=== PATIENT | male | born 1955 | race Caucasian/White ===

== ENCOUNTER 2020-07-21 09:00 | Day surgery (SDC) | payer MEDICARE ==
[2020-07-15 13:12] LABS: BASOPHILS % (AUTO) 0.4 % (0.0-5.0); EOSINOPHILS % (AUTO) 1.9 % (0.0-8.0); HEMATOCRIT 40.8 % (42-54); LYMPHOCYTES % (AUTO) 28.8 % (21.0-51.0); MEAN CORPUSCULAR HEMOGLOBIN 30.2 pg (27.0-33.0); MEAN CORPUSCULAR HGB CONC 32.6 g/dL (32.0-36.0); MEAN CORPUSCULAR VOLUME 92.5 fL (79-99); MONOCYTES % (AUTO) 10.1 % (3.0-13.0); NEUTROPHILS % (AUTO) 58.4 % (40.0-77.0); PLATELET COUNT (AUTO) 174 K/uL (130-400); RED BLOOD CELL COUNT(AUTO) 4.41 MIL/uL (4.50-6.20); RED CELL DISTRIBUTION WIDTH 13.2 % (11.0-15.5); WHITE BLOOD COUNT (AUTO) 5.3 K/uL (4.8-10.8)
[2020-07-15 13:41] LABS: CREATININE 1.1 mg/dL (0.5-1.5); POTASSIUM 4.4 mmol/L (3.5-5.1)
[2020-07-15 14:55] LABS: INR 1.03 (0.85-1.15); PARTIAL THROMBOPLASTIN TIME 24.3 SEC (26.3-35.5); PROTHROMBIN TIME 10.7 SEC (9.6-11.6)
[2020-07-20 14:54] VITALS: BP 158/77
[2020-07-21] VITALS (16 sets, daily range): BP systolic 101–153; BP diastolic 58–86
[~2020-07-21] VITALS: Ht 180.3 cm; Wt 106.6 kg
[~2020-07-21 09:00] MED LIST: ATOR20TA65 PO; CILO50TA PO; FISH1CAP10 PO; GLUC-252 PO; LISI20TA24 PO; VITAMIN E PO
[2020-07-21] MEDS ORDERED: LACTATED RINGERS 1000ML 1,000 ML IV ONE (10:17)
[2020-07-21] MEDS: CEFAZOLIN SODIUM 1 GM VIAL IVP SCH ×2 (11:00→11:45)
[2020-07-21] MEDS ORDERED: VENL-53 PO (11:07)
[2020-07-21] MEDS ORDERED: OSTEOFLEX PO (11:08)
[2020-07-21] MEDS ORDERED: FENTANYL CITRATE PF 50 MCG/1 ML 2ML VIAL ONE ×2 (11:29→12:15)
[2020-07-21] MEDS ORDERED: PROPOFOL 10 MG/ML 20ML VIAL IV ONE (11:29)
[2020-07-21] MEDS ORDERED: LIDOCAINE PF 2% 5ML ABBOJECT ONE (11:29)
[2020-07-21] MEDS ORDERED: GLYCOPYRROLATE 1 MG/5 ML SYRINGE ONE (11:45)
[2020-07-21] MEDS ORDERED: BACITRACIN 28.4 GM OINT TP ONE (12:43)
== END 2020-07-21 14:40 | disposition home or self-care (01) ==
LOC: DAH 09:00
PROVIDERS: ATTEND Urology
DX: N43.40 Spermatocele of epididymis, unspecified (principal); I10 Essential (primary) hypertension; I73.9 Peripheral vascular disease, unspecified; G47.33 Obstructive sleep apnea (adult) (pediatric); Z99.89 Dependence on other enabling machines and devices; Z79.01 Long term (current) use of anticoagulants; Z20.828 Contact with and (suspected) exposure to other viral communicable diseases; Z79.899 Other long term (current) drug therapy
CPT/HCPCS: 36415; 54840; 71045; 80048; 85025; 85610; 85730; 93005; A4215; A4221; A4222; A4223; A4600; A4663; A6260; C9803; J0690; J2001; J2704; J3010 ×2; J3490; J7120 ×2; U0003